=== PATIENT | male | born 1995 | race Two or more races ===

== ENCOUNTER 2019-12-28 18:00 | Emergency (ER) | payer MEDICAID ==
[~2019-12-28] VITALS: Ht 177.8 cm; Wt 81.6 kg
[2019-12-28 18:16] VITALS: BP 116/84
[2019-12-28] MEDS ORDERED: NEOMYCIN-BACITRACIN-POLYM UNITDOSE PKG TOP OINT TOP ONE (18:30)
[2019-12-28] MEDS ORDERED: IBUPROFEN 600 MG TAB PO ONE (19:45)
== END 2019-12-28 21:28 | disposition home or self-care (01) ==
LOC: ER 18:00 → EDBD 18:00 → ER 21:28
DX: S01.81XA Laceration without foreign body of other part of head, initial encounter (principal); R07.89 Other chest pain; M25.512 Pain in left shoulder; V89.2XXA Person injured in unspecified motor-vehicle accident, traffic, initial encounter; Y93.I9 Activity, other involving external motion; Y92.410 Unspecified street and highway as the place of occurrence of the external cause; Y99.8 Other external cause status
CPT/HCPCS: 12001; 70450; 71046

== ENCOUNTER 2020-01-24 14:55 | Emergency (ER) | payer OTHER, MEDICAID ==
[~2020-01-24] VITALS: Ht 177.8 cm; Wt 68.0 kg
[2020-01-24 16:37] VITALS: BP 140/86
== END 2020-01-24 16:26 | disposition home or self-care (01) ==
LOC: ER 14:55
DX: S01.01XD Laceration without foreign body of scalp, subsequent encounter (principal); X58.XXXD Exposure to other specified factors, subsequent encounter

== ENCOUNTER 2020-11-27 07:33 | Emergency (ER) | payer MEDICAID ==
[~2020-11-27] VITALS: Ht 180.3 cm; Wt 79.4 kg
[2020-11-27] MEDS ORDERED: KETOROLAC TROMETH 30 MG/ML 1ML VIAL IV ONE (08:15)
[2020-11-27] MEDS ORDERED: CLINDAMYCIN 900MG IV 50 ML IV ONE (08:15)
[2020-11-27] MEDS ORDERED: CLINDAMYCIN 600MG IV 50 ML IV ONE (08:15)
[2020-11-27] MEDS ORDERED: cefTRIAXone 1GM/50ML D5W 50 ML IV ONE (08:15)
[2020-11-27 09:48] VITALS: BP 140/84
== END 2020-11-27 09:55 | disposition home or self-care (01) ==
LOC: ER 07:33
DX: K04.7 Periapical abscess without sinus (principal)
CPT/HCPCS: 96365; 96368; 96375; 99284; J0696; J1885; J3490

== ENCOUNTER 2020-11-28 08:43 | Emergency (ER) | payer MEDICAID ==
[~2020-11-28] VITALS: Ht 180.3 cm; Wt 72.6 kg
[2020-11-28] MEDS ORDERED: methylPREDNISolone SOD SUCC 125 MG/2 ML VL IV ONE (08:45)
[2020-11-28 09:10] LABS: Basophils # (auto) 0 10 ^3/uL (0-0.2); Basophils % (auto) 0.1 % (0.0-2.0); Eosinophils # (auto) 0.2 10 ^3/uL (0-0.8); Hematocrit 46.1 % (41.0-53.0); Hemoglobin 15.6 g/dL (13.5-17.5); Lymphocytes # (auto) 1.2 10 ^3/uL (0.4-5.4); Lymphocytes % (auto) 5.5 % (10.0-50.0); Mean Corpuscular Hgb Conc. 33.8 g/dL (32.0-36.0); Mean Corpuscular Volume 88.6 fL (80.0-100.0); Monocytes # (auto) 1.9 10 ^3/uL (0-1.3); Monocytes % (auto) 8.7 % (0.0-12.0); Neutrophils # (auto) 18.8 10 ^3/uL (1.6-8.6); Neutrophils % (auto) 84.7 % (37.0-80.0); Nucleated Red Blood Cells % 0.1 %; Platelet Count (auto) 270 10^3/uL (140-450); Red Cell Distribution Width 13.1 % (11.8-14.3); White Blood Cell 22.2 10^3/uL (4.4-10.8)
[2020-11-28] MEDS ORDERED: CLINDAMYCIN 600MG IV 50 ML IV ONE (09:15)
[2020-11-28 09:29] LABS: Potassium 3.2 mmol/L (3.5-5.1)
[2020-11-28 09:59] LABS: BUN/Creatinine Ratio 12.3
[2020-11-28 10:00] LABS: Albumin 3.1 g/dL (3.4-5.0); Bilirubin, Total 0.9 mg/dL (0.2-1.0); Calcium 9.4 mg/dL (8.5-10.1); Total Protein 7.2 g/dL (6.4-8.2)
[2020-11-28] MEDS ORDERED: IOHEXOL 300 MG/ML 100ML BOTTLE IJ ONE (10:40)
[2020-11-28 12:53] VITALS: BP 120/88
== END 2020-11-28 13:16 | disposition designated cancer center or children's hospital (05) ==
LOC: ER 08:43
DX: K04.7 Periapical abscess without sinus (principal); D72.829 Elevated white blood cell count, unspecified; F17.210 Nicotine dependence, cigarettes, uncomplicated; F12.10 Cannabis abuse, uncomplicated; Z87.440 Personal history of urinary (tract) infections
CPT/HCPCS: 36415; 70487; 80053; 85025; 96365; 96375; 99285; J2930; J3490; Q9967

== ENCOUNTER 2022-04-14 14:21 | Emergency (ER) | payer MEDICAID ==
[~2022-04-14] VITALS: Ht 172.7 cm; Wt 90.9 kg
[2022-04-14] MEDS ORDERED: SODIUM CHLORIDE 0.9% 1,000 ML IV ONE (14:30)
[2022-04-14] MEDS ORDERED: traMADol HCL 50 MG TAB PO ONE (17:15)
[2022-04-14] MEDS ORDERED: TRAM-297 PO (17:37)
[2022-04-14] MEDS ORDERED: HYDR-4902 PO (19:42)
[2022-04-14 20:00] VITALS: BP 158/99
== END 2022-04-14 20:24 | disposition home or self-care (01) ==
LOC: EDBD 14:21 → ER 14:21
DX: S82.832A Other fracture of upper and lower end of left fibula, initial encounter for closed fracture (principal); S82.52XA Displaced fracture of medial malleolus of left tibia, initial encounter for closed fracture; S00.81XA Abrasion of other part of head, initial encounter; F17.210 Nicotine dependence, cigarettes, uncomplicated; V49.9XXA Car occupant (driver) (passenger) injured in unspecified traffic accident, initial encounter; Y93.89 Activity, other specified; Y92.410 Unspecified street and highway as the place of occurrence of the external cause; Y99.8 Other external cause status
CPT/HCPCS: 29515; 36415; 70450; 70486; 72125; 73610; 80320

== ENCOUNTER 2024-05-29 16:51 | Emergency (ER) | payer MEDICAID ==
[~2024-05-29] VITALS: Ht 182.9 cm; Wt 66.3 kg
[~2024-05-29 16:51] MED LIST: HYDR-4902 PO; TRAM-297 PO
[2024-05-29] MEDS ORDERED: IBUP-1456 PO (18:43)
[2024-05-29] MEDS ORDERED: AMOX875T4 PO (18:43)
[2024-05-29 18:47] VITALS: BP 134/78; PULSE 80; RESP 14; O2SAT 98
[2024-05-29] MEDS: cefTRIAXone SOD 1,000 MG VL IM ONE (18:59)
[2024-05-29] MEDS: TETANUS-DIPTH-ACEL PERTUSSIS 0.5ML SYR Tdap IM ONE (19:00)
[2024-05-29 19:01] VITALS: TEMP 98.9
[2024-05-29] MEDS: IBUPROFEN 800 MG TAB PO ONE (19:01)
== END 2024-05-29 19:16 | disposition home or self-care (01) ==
LOC: ER 16:55
DX: L03.012 Cellulitis of left finger (principal); F17.210 Nicotine dependence, cigarettes, uncomplicated; F12.10 Cannabis abuse, uncomplicated
CPT/HCPCS: 90471; 90715; 96372; 99284; J0696